=== PATIENT | female | born 1965 | race American Indian/Alaskan Native ===

== ENCOUNTER 2016-06-17 11:19 | Emergency (ER) | payer SELFPAY ==
[2016-06-17 12:23] VITALS: BP 148/96
[2016-06-17] MEDS ORDERED: XYLOCAINE 1%/ EPI 1:100,000 INFILTRATI ONE (16:02)
== END 2016-06-17 20:45 | disposition left against medical advice (07) ==
LOC: ED 11:19
DX: F41.9 Anxiety disorder, unspecified (principal); Z53.21 Procedure and treatment not carried out due to patient leaving prior to being seen by health care provider